=== PATIENT | male | born 1965 | race Caucasian/White ===

== ENCOUNTER 2018-06-13 18:34 | Emergency (ER) | payer MEDICAID ==
[~2018-06-13] VITALS: Ht 182.9 cm; Wt 100.2 kg
[~2018-06-13 18:34] MED LIST: CARB200T1 PO; DIVA500T1 PO
--- NOTE | 2018-06-13 18:34 | NUR ---
PT BIB [facility] FOR PREBOOK
[2018-06-13 18:37] VITALS: BP 142/89
--- NOTE | 2018-06-13 18:44 | NUR ---
52m bib in custody with [place] [employer] officer ma for prebook medical clearance. patient with no complaints. pt is aox4 to person, place, situation, and time. patient denies any pain, cp, or sob. rr are even and unlabored. skin is warm/dry/color apprioriate for ethnicity. clear speech with full sentences. awaiting er md carter. [facility] by bedside. nad. vss. will continue to monitor.
--- NOTE | 2018-06-13 19:30 | NUR ---
PATIENT SITTING WITH OFFICER IN CHAIR E.
[2018-06-13 20:15] VITALS: BP 128/85
--- NOTE | 2018-06-13 20:15 | NUR ---
Patient discharged with v/s stable. Written and verbal after care instructions given and explained. Patient verbalized understanding. Ambulatory with steady gait. All questions addressed prior to discharge. Advised to follow up with PMD.
== END 2018-06-13 20:15 ==
LOC: MED 18:34
DX: Z02.89 Encounter for other administrative examinations (principal); E78.5 Hyperlipidemia, unspecified; Z79.899 Other long term (current) drug therapy
CPT/HCPCS: 99283